=== PATIENT | female | born 1990 | race Caucasian/White ===

== ENCOUNTER 2017-03-23 20:03 | Emergency (ER) | payer OTHER ==
[2017-03-23 20:30] VITALS: BP 119/69; PULSE 110; TEMP 98.3; BMI 19.6
[2017-03-23] MEDS ORDERED: diphenhydrAMINE HCL 50 MG CAPSULE PO ONE (20:38)
[2017-03-23] MEDS ORDERED: predniSONE 20 MG TABLET (UD) PO ONE (20:39)
[2017-03-23] MEDS ORDERED: predniSONE 20 MG TABLET (UD) ONE (20:41)
[2017-03-23] MEDS ORDERED: diphenhydrAMINE HCL 25 MG CAPSULE (FP) PO ONE ×2 (20:41→20:45)
--- NOTE | 2017-03-23 20:45 | PDOC ---
History of Present Illness - General Chief Complaint: Rash Stated Complaint: RASH Time Seen by Provider: 03/23/17 20:23 History Source: Patient Exam Limitations: No Limitations - History of Present Illness Initial Comments: 03/23/17 20:40 26 yr female with itchy rash face, arms started yesterday getting worse. no fever, no SOB or cough. Past History - Past Medical History Allergies/Adverse Reactions: Allergies Allergy/AdvReac Type Severity Reaction Status Date / Time No Known Drug Allergies Allergy Unknown Verified 03/09/14 17:49 GREEN APPLES Allergy Uncoded 09/23/13 16:12 Home Medications: Ambulatory Orders No Home Medications 0 dose .ROUTE UTDICT 09/23/13 Diphenhydramine HCl [Benadryl -] 25 mg PO Q6H PRN #28 capsule 03/23/17 Hydrocortisone Valerate [Westcort 0.2% Cream -] 1 applic TP BID #1 tube Prednisone [Deltasone -] 20 mg PO DAILY #7 tablet 03/23/17 Asthma: No Cancer: No Cardiac Disorders: No Diabetes: No HTN: No Seizures: No Thyroid Disease: No Other medical history: 03.23.17 -- fetus w/o heart beat. - Psycho/Social/Smoking Cessation Hx Anxiety: No Suicidal Ideation: No Smoking Status: Yes Smoking History: Current every day smoker Have you smoked in the past 12 months: Yes Number of Cigarettes Smoked Daily: 5 Information on smoking cessation initiated: No Hx Alcohol Use: Yes Drug/Substance Use Hx: No Substance Use Type: None Hx Substance Use Treatment: No *Physical Exam - Vital Signs Last Vital Signs Temp Pulse Resp BP Pulse Ox 98.3 F 110 H 16 119/69 99 03/23/17 20:15 03/23/17 20:15 03/23/17 20:15 03/23/17 20:15 03/23/17 20:15 - Physical Exam General Appearance: Yes: Nourished, Appropriately Dressed HEENT: positive: EOMI, MARCUS, Normal ENT Inspection, TMs Normal, Pharynx Normal Neck: positive: Supple Respiratory/Chest: positive: Lungs Clear, Normal Breath Sounds. 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 NML intact, Fully Oriented, Alert, Normal Mood/ Affect, Normal Response, Motor Strength /5 Medical Decision Making - Medical Decision Making 03/23/17 20:47 cc: itchy rash for 2 days getting worse no fever no sob , no recent medications or change in medications soaps detergents or diet pt has allergy to apples stable non toxic unknown cause will give benadryl and prednisone dc inst discussed with pt all questions asked and answered *DC/Admit/Observation/Transfer Diagnosis at time of Disposition: Allergic dermatitis - Discharge Dispostion Disposition: HOME Condition at time of disposition: Good - Prescriptions Prescriptions: Diphenhydramine HCl [Benadryl -] 25 mg PO Q6H PRN #28 capsule PRN Reason: itching Prednisone [Deltasone -] 20 mg PO DAILY #7 tablet Hydrocortisone Valerate [Westcort 0.2% Cream -] 1 applic TP BID #1 tube - Referrals Referrals: Ginna Nciolas MD [Staff Physician] - - Patient Instructions Additional Instructions: cool water to bathe apply a soothing lotion or cream for sensitive skin (anything over the counter Aveeno is good) use the hydrocortisone cream as directed to the areas on your arm and neck avoid the face next dose of prednisone take tomorrow morning 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
== END 2017-03-23 20:49 | disposition home or self-care (01) ==
LOC: JERFT 20:03 → JER 20:03 → JERFT 20:49
DX: L23.9 Allergic contact dermatitis, unspecified cause (principal)
CPT/HCPCS: 99281-25